=== PATIENT | female | born 1950 | race Caucasian/White ===

== ENCOUNTER → 2016-08-08 | Outpatient (CLI) | payer MEDICARE, OTHER ==
--- NOTE | ~2016-08-08 | 2DMMODE ---
[facility] [place] [address] 2 D/M-MODE ECHOCARDIOGRAM Name: ROYER BOWEN Room #: REG [facility]#: [id number] Admission: 08/08/16 Attend Phys: Clayton Silveira MD Discharge: Date of : 50 Date of Service: 08/08/16 1510 Report #: [id number] THIS REPORT FOR: //name// Transthoracic Echocardiography Ordering physician: Clayton Silveira MD Referring Hung Metz [facility] Clayton Silveira, physician: Cattle Broker: Faiza Hines Indications/History: Chest pain. Chemo. Hx: DM, HTN, HLP BP: 151 / HR: 81bpm Height: 65in Weight: 134.7lb 91 Study data: M-mode, complete 2D, complete spectral Doppler, and color Doppler. Location: Echo laboratory. Routine. Image quality was adequate. 2D measurements Normal Normal LVID ED 44.3mm 36-57 IVS ED 12.3mm 6-11 LVID ES 29.2mm 23-40 LVPW ED 11.9mm 6-11 LA volume 19ml/m2 16-28 AoRoot diam 35.3mm 21-37 index ED LVOT diameter 21mm 18-23 Findings: Left ventricle: The cavity size was normal. Wall thickness was increased in a pattern of mild LVH. Systolic function was normal. The estimated ejection fraction was in the range of 50% to 55%. Wall motion was normal. Right ventricle: The cavity size was normal. Systolic function was normal. Right atrium: The atrium was normal in size. Left atrium: The atrium was normal in size. Volume index: 19ml/m2 (S). Aortic valve: Mildly sclerotic leaflets. Doppler: There was no stenosis. No regurgitation. Peak velocity: [facility] [address] [place] [address] 2 D/M-MODE ECHOCARDIOGRAM Name: ROYER BOWEN Room #: REG [facility]#: [id number] Admission: 08/08/16 Attend Phys: Clayton Silveira MD Discharge: Date of : 50 Date of Service: 08/08/16 1510 Report #: [id number] 123.1cm/s (S). Mitral valve: Mildly thickened leaflets . Doppler: There was no evidence for stenosis. Mild regurgitation. Peak E-wave velocity: 77.8cm/s. Peak gradient: 2.4mm Hg (D). Peak A-wave velocity: 113.3cm/s. Tricuspid valve: Structurally normal valve. Doppler: There was no evidence for stenosis. Trivial regurgitation. Regurgitant peak velocity: 241cm/s. Peak RV-RA gradient: 23mm Hg (S). Pulmonic valve: Structurally normal valve. Doppler: There was no evidence for stenosis. Trivial regurgitation. Pericardium: There was no pericardial effusion. Aorta: Aortic root: The aortic root was normal in size. Pulmonary artery: Systolic pressure was estimated to be 28mm Hg. Diastolic function: Doppler parameters are consistent with abnormal left ventricular relaxation (grade 1 diastolic dysfunction). Systemic veins: Inferior vena cava: The vessel was normal in size; the respirophasic diameter changes were in the normal range (= 50%). Conclusions 1. Left ventricle: The cavity size was normal. Wall thickness was increased in a pattern of mild LVH. Systolic function was normal. The estimated ejection fraction was in the range of 50% to 55%. 2. Right ventricle: The cavity size was normal. 3. Left atrium: The atrium was normal in size. 4. Aortic valve: Mildly sclerotic leaflets. There was no stenosis. 5. Mitral valve: Mildly thickened leaflets . Mild regurgitation. 6. Tricuspid valve: Trivial regurgitation. 7. Pericardium, extracardiac: There was no pericardial effusion. <ELECTRONICALLY SIGNED> By: Clayton Silveira MD 08/08/161715 1510 15 Clayton Silveira MD /millie
== END ==
LOC: CV 08:20
DX: Z01.818 Encounter for other preprocedural examination (principal); I10 Essential (primary) hypertension; E11.9 Type 2 diabetes mellitus without complications; E78.5 Hyperlipidemia, unspecified; R07.9 Chest pain, unspecified

== ENCOUNTER → 2018-07-30 | Outpatient (CLI) | payer MEDICARE ==
--- NOTE | 2018-07-30 11:55 | 2DMMODE ---
[facility] [place] [employer] [address] 2 D/M-MODE ECHOCARDIOGRAM Name: ROYER BOWEN Room #: REG [facility]#: [id number] Admission: 07/30/18 Attend Phys: Clayton Silveira MD Discharge: Date of : 50 Date of Service: 07/30/18 1155 Report #: [id number] THIS REPORT FOR: //name// APPROVED REPORT Study performed: 07/30/2018 09:07:48 EXAM: Comprehensive 2D, Doppler, and color-flow Echocardiogram Patient Location: Out-Patient Room #: Echo lab 2 Status: routine BSA: 1.69 HR: 76 bpm BP: 126/86 mmHg Rhythm: NSR Other Information Study Quality: Adequate Indications Dyspnea Hypertension/HDD 2D Dimensions RVDd: 27.84 mm IVSd: 12.29 (7-11mm) LVOT Diam: 19.53 (18-24mm) LVDd: 35.09 mm PWd: 12.02 (7-11mm) Ascending Ao: 31.09 (22-36mm) LVDs: 25.90 (25-40mm) Aortic Root: 31.87 mm IVC: 18.00 mm Volumes Left Atrial Volume (Systole) Single Plane 4CH: 18.01 mL Single Plane 2CH: 24.61 mL LA ESV Index: 15.00 mL/m2 Aortic Valve AoV Peak Tunde.: 1.03 m/s AO Peak Gr.: 4.23 mmHg LVOT Max P.29 mmHg LVOT Max V: 0.91 m/s MAGUE Vmax: 2.64 cm2 Mitral Valve E/A Ratio: 0.7 MV Decel. Time: 254.14 ms [facility] [place] [address] [place] [address] 2 D/M-MODE ECHOCARDIOGRAM Name: ANDRÉSROYER J Room #: REG [facility]#: [id number] Admission: 07/30/18 Attend Phys: Clayton Silveira MD Discharge: Date of : 50 Date of Service: 07/30/18 1155 Report #: [id number] MV E Max Tunde.: 0.64 m/s MV A Tunde.: 0.98 m/s MV PHT: 73.70 ms IVRT: 143.02 ms Pulmonary Valve PV Peak Tunde.: 0.70 m/s PV Peak Gr.: 1.96 mmHg Pulmonary Vein P Vein S: 0.36 m/s P Vein A: 0.27 m/s P Vein D: 0.28 m/s P Vein A Dur.: 92.3 msec P Vein S/D Ratio: 1.29 Tricuspid Valve TR Peak Tunde.: 1.92 m/s TR Peak Gr.: 14.74 mmHg PA Pressure: 20.00 mmHg Left Ventricle The left ventricle is normal size. There is normal LV segmental wall motion. Mild concentric left ventricular hypertrophy. The left ventricular systolic function is normal. The left ventricular ejection fraction is within the normal range. LVEF is 55-60%. Grade I - abnormal relaxation pattern. Right Ventricle The right ventricle is normal size. The right ventricular systolic function is normal. Atria The left atrium size is normal. The right atrium size is normal. Aortic Valve The aortic valve is normal in structure. No aortic regurgitation is present. There is no aortic valvular stenosis. Mitral Valve The mitral valve is normal in structure. Trace mitral regurgitation. No evidence of mitral valve stenosis. Tricuspid Valve The tricuspid valve is normal in structure. There is trace tricuspid regurgitation. Estimated PAP 20 mmHg. There is no pulmonary hypertension. [address] [address] 2 D/M-MODE ECHOCARDIOGRAM Name: ROYER BOWEN [id number] Admission: 07/30/18 Attend Phys: Clayton Silveira MD Discharge: Date of : 50 Date of Service: 07/30/18 1155 Report #: [id number] Pulmonic Valve The pulmonary valve is normal in structure. There is no pulmonic valvular regurgitation. Great Vessels The aortic root is normal in size. IVC is normal in size and collapses >50% with inspiration. Pericardium There is no pericardial effusion. <Conclusion> The left ventricle is normal size. Mild concentric left ventricular hypertrophy. The left ventricular systolic function is normal. Grade I - abnormal relaxation pattern. The right ventricle is normal size. The left atrium size is normal. The aortic valve is normal in structure. Trace mitral regurgitation. There is trace tricuspid regurgitation. Estimated PAP 20 mmHg. <ELECTRONICALLY SIGNED> By: Clayton Silveira MD 07/30/18 1155 1155 1155 Clayton Silveira MD /INF
== END ==
LOC: CV 08:51
DX: I10 Essential (primary) hypertension (principal); R07.9 Chest pain, unspecified

== ENCOUNTER → 2020-08-06 | Outpatient (CLI) | payer MEDICARE | LOC: SJCVC 13:12 | PROVIDERS: ATTEND Internal Medicine Cardiovascular Disease | DX: R94.31 Abnormal electrocardiogram [ECG] [EKG] (principal); I10 Essential (primary) hypertension; E78.00 Pure hypercholesterolemia, unspecified; E11.9 Type 2 diabetes mellitus without complications; K21.9 Gastro-esophageal reflux disease without esophagitis; E78.5 Hyperlipidemia, unspecified; Z79.899 Other long term (current) drug therapy; Z85.3 Personal history of malignant neoplasm of breast; Z85.048 Personal history of other malignant neoplasm of rectum, rectosigmoid junction, and anus; Z79.84 Long term (current) use of oral hypoglycemic drugs ==

== ENCOUNTER → 2020-08-06 | Outpatient (CLI) | payer OTHER | LOC: CAT 14:19 | PROVIDERS: ATTEND Internal Medicine Cardiovascular Disease | DX: Z13.6 Encounter for screening for cardiovascular disorders (principal); I25.10 Atherosclerotic heart disease of native coronary artery without angina pectoris; E78.00 Pure hypercholesterolemia, unspecified ==